=== PATIENT | male | born 1995 | race Caucasian/White ===

== ENCOUNTER → 2017-12-13 13:44 | Outpatient (CLI) | payer OTHER, SELFPAY ==
--- NOTE | 2017-12-13 13:46 | DI.RAD.S_ITS ---
PROCEDURE: XR ANKLE LT MIN 3V INDICATIONS: ankle injury TECHNIQUE: 3 views of the ankle were acquired. COMPARISON: None. FINDINGS: Bones: No fractures or dislocations. Ankle mortise is normally aligned. No suspicious bony lesions. Soft tissues: No tibiotalar joint effusion. Achilles tendon appears normal. IMPRESSION: Mild soft tissue swelling over lateral malleolus. No fracture or traumatic subluxation is found. Dictated by: Waqas Hughes M.D. on 12/13/2017 at 14:25 Approved by: Waqas Hughes M.D. on 12/13/2017 at 14:26
== END ==
PROVIDERS: Family Provider Family Medicine; PCP Family Medicine; Visit Provider Registered Nurse
DX: S99.912A Unspecified injury of left ankle, initial encounter (principal); M79.89 Other specified soft tissue disorders
CPT/HCPCS: 73610

== ENCOUNTER → 2018-08-24 15:47 | Outpatient (CLI) | payer OTHER, SELFPAY ==
[2018-08-24 16:30] LABS: Add Manual Diff / Slide Review NO; Basophils Absolute Auto 100 /uL (0-100); Basophils Percent Auto 1.1 % (0-2); Eosinophils Absolute Auto 200 /uL (0-450); Eosinophils Percent Auto 3.6 % (2-4); Hematocrit 41.9 % (41-53); Hemoglobin 14.3 g/dL (13.5-17.5); Lymphocytes Absolute Auto 1700 /uL (1100-4500); Lymphocytes Percent Auto 33.5 % (25-40); Mean Corpuscular HGB Conc 34.2 % (30-36); Mean Corpuscular Hemoglobin 28.3 PG (26-34); Mean Corpuscular Volume 82.9 fL (80-100); Monocytes Absolute Auto 400 /uL (0-900); Monocytes Percent Auto 7.7 % (3-14); Neutrophils Absolute Auto 2800 /uL (1500-7000); Neutrophils Percent Auto 54.1 % (50-75); Platelet Count 207 X10^3/uL (150-400); Red Blood Cell Count 5.05 X10^6/uL (4.5-5.9); Red Cell Distribution Width 13.1 % (11.6-14.8); White Blood Cell Count 5.2 X10^3/uL (4.5-11.0)
== END ==
PROVIDERS: PCP Family Medicine; Visit Provider Family Medicine
DX: Z01.812 Encounter for preprocedural laboratory examination (principal)
CPT/HCPCS: 36415; 85025; 93005; 93010

== ENCOUNTER → 2019-07-10 16:14 | Outpatient (CLI) | payer OTHER, SELFPAY ==
[2019-07-10 17:09] LABS: Add Manual Diff / Slide Review NO; Basophils Absolute Auto 100 /uL (0-100); Basophils Percent Auto 1.2 % (0-2); Eosinophils Absolute Auto 200 /uL (0-450); Eosinophils Percent Auto 3.5 % (2-4); Hematocrit 42.7 % (41-53); Hemoglobin 14.3 g/dL (13.5-17.5); Lymphocytes Absolute Auto 1700 /uL (1100-4500); Lymphocytes Percent Auto 27.6 % (25-40); Mean Corpuscular HGB Conc 33.4 % (30-36); Mean Corpuscular Hemoglobin 28.6 PG (26-34); Mean Corpuscular Volume 85.4 fL (80-100); Monocytes Absolute Auto 500 /uL (0-900); Monocytes Percent Auto 7.7 % (3-14); Neutrophils Absolute Auto 3700 /uL (1500-7000); Platelet Count 224 X10^3/uL (150-400); Red Cell Distribution Width 13.2 % (11.6-14.8); White Blood Cell Count 6.2 X10^3/uL (4.5-11.0)
[2019-07-10 17:40] LABS: Alanine Aminotransferase 15 IU/L (<50); Albumin 5.2 g/dL (3.5-5.0); Albumin Globulin Ratio 1.4 (1.0-2.8); Alkaline Phosphatase 63 U/L (38-126); Aspartate Aminotransferase 24 IU/L (17-59); BUN Creatinine Ratio 19.2 (6-22); Bilirubin Total 0.4 mg/dL (0.2-1.3); Blood Urea Nitrogen 15 mg/dL (9-20); Calcium 10.4 mg/dL (8.4-10.2); Carbon Dioxide 29 mmol/L (22-32); Chloride 102 mmol/L (98-107); Estimated Glomerular Filt Rate > 60.0 mL/min (>60); Globulin 3.6 g/dL (1.7-4.1); Glucose 100 mg/dL (70-100); HEMOLYSIS < 15 (0-50); Potassium 4.5 mmol/L (3.4-5.1); Sodium 141 mmol/L (137-145); Total Protein 8.8 g/dL (6.3-8.2)
[2019-07-11 07:17] LABS: Valproic Acid (Depakene) Total 38 ug/mL (50-100)
== END ==
PROVIDERS: PCP Family Medicine; Referring Provider Nurse Practitioner Psychiatric/Mental Health; Visit Provider Nurse Practitioner Psychiatric/Mental Health
DX: F31.81 Bipolar II disorder (principal)
CPT/HCPCS: 36415; 80053; 80164; 85025

== ENCOUNTER → 2019-08-07 16:50 | Outpatient (CLI) | payer OTHER, SELFPAY ==
[2019-08-07 18:05] LABS: Add Manual Diff / Slide Review NO; Basophils Absolute Auto 100 /uL (0-100); Basophils Percent Auto 1.4 % (0-2); Eosinophils Absolute Auto 200 /uL (0-450); Eosinophils Percent Auto 4.1 % (2-4); Hematocrit 40.4 % (41-53); Hemoglobin 13.7 g/dL (13.5-17.5); Lymphocytes Absolute Auto 1500 /uL (1100-4500); Lymphocytes Percent Auto 27.1 % (25-40); Mean Corpuscular HGB Conc 33.9 % (30-36); Mean Corpuscular Volume 85.6 fL (80-100); Monocytes Absolute Auto 500 /uL (0-900); Monocytes Percent Auto 9.1 % (3-14); Neutrophils Absolute Auto 3100 /uL (1500-7000); Neutrophils Percent Auto 58.3 % (50-75); Platelet Count 200 X10^3/uL (150-400); Red Blood Cell Count 4.72 X10^6/uL (4.5-5.9); Red Cell Distribution Width 13.5 % (11.6-14.8); White Blood Cell Count 5.4 X10^3/uL (4.5-11.0)
[2019-08-07 18:16] LABS: Alanine Aminotransferase 14 IU/L (<50); Albumin Globulin Ratio 1.6 (1.0-2.8); Alkaline Phosphatase 54 U/L (38-126); Aspartate Aminotransferase 23 IU/L (17-59); BUN Creatinine Ratio 16.4 (6-22); Bilirubin Total 0.3 mg/dL (0.2-1.3); Blood Urea Nitrogen 12 mg/dL (9-20); Calcium 10.1 mg/dL (8.4-10.2); Carbon Dioxide 25 mmol/L (22-32); Chloride 105 mmol/L (98-107); Estimated Glomerular Filt Rate > 60.0 mL/min (>60); Globulin 3.2 g/dL (1.7-4.1); Glucose 116 mg/dL (70-100); HEMOLYSIS < 15 (0-50); Potassium 4.7 mmol/L (3.4-5.1); Sodium 141 mmol/L (137-145); Total Protein 8.2 g/dL (6.3-8.2)
[2019-08-08 04:27] LABS: Valproic Acid (Depakene) Total 51 ug/mL (50-100)
== END ==
PROVIDERS: PCP Family Medicine; Referring Provider Nurse Practitioner Psychiatric/Mental Health; Visit Provider Nurse Practitioner Psychiatric/Mental Health
DX: F31.81 Bipolar II disorder (principal)
CPT/HCPCS: 36415; 80053; 80164; 85025

== ENCOUNTER → 2019-10-23 13:03 | Outpatient (CLI) | payer OTHER, SELFPAY ==
[2019-10-23 14:20] LABS: Add Manual Diff / Slide Review NO; Basophils Absolute Auto 100 /uL (0-100); Basophils Percent Auto 1.2 % (0-2); Eosinophils Absolute Auto 300 /uL (0-450); Eosinophils Percent Auto 5.8 % (2-4); Hematocrit 39.5 % (41-53); Hemoglobin 13.1 g/dL (13.5-17.5); Lymphocytes Absolute Auto 1300 /uL (1100-4500); Lymphocytes Percent Auto 29.4 % (25-40); Mean Corpuscular HGB Conc 33.1 % (30-36); Mean Corpuscular Hemoglobin 28.3 PG (26-34); Mean Corpuscular Volume 85.2 fL (80-100); Monocytes Absolute Auto 300 /uL (0-900); Monocytes Percent Auto 7.7 % (3-14); Neutrophils Absolute Auto 2400 /uL (1500-7000); Neutrophils Percent Auto 55.9 % (50-75); Platelet Count 182 X10^3/uL (150-400); Red Blood Cell Count 4.63 X10^6/uL (4.5-5.9); Red Cell Distribution Width 13.3 % (11.6-14.8); White Blood Cell Count 4.4 X10^3/uL (4.5-11.0)
[2019-10-23 16:03] LABS: Alanine Aminotransferase 14 IU/L (<50); Albumin 4.8 g/dL (3.5-5.0); Albumin Globulin Ratio 1.7 (1.0-2.8); Alkaline Phosphatase 59 U/L (38-126); Aspartate Aminotransferase 24 IU/L (17-59); Bilirubin Total 0.5 mg/dL (0.2-1.3); Blood Urea Nitrogen 13 mg/dL (9-20); Calcium 9.9 mg/dL (8.4-10.2); Carbon Dioxide 23 mmol/L (22-32); Chloride 106 mmol/L (98-107); Globulin 2.8 g/dL (1.7-4.1); Glucose 138 mg/dL (70-100); HEMOLYSIS < 15 (0-50); Potassium 4.2 mmol/L (3.4-5.1); Sodium 140 mmol/L (137-145); Total Protein 7.6 g/dL (6.3-8.2)
[2019-10-23 16:41] LABS: BUN Creatinine Ratio 17.8 (6-22); Estimated Glomerular Filt Rate > 60.0 mL/min (>60)
[2019-10-24 05:10] LABS: Valproic Acid (Depakene) Total 62 ug/mL (50-100)
[2019-10-24 09:04] LABS: Lipase 172 U/L (23-300)
[2019-11-01 09:35] LABS: Urea Breath Test >18YRS Negative
== END ==
PROVIDERS: PCP Family Medicine; Referring Provider Family Medicine; Visit Provider Family Medicine
DX: R11.10 Vomiting, unspecified (principal); Z86.69 Personal history of other diseases of the nervous system and sense organs
CPT/HCPCS: 36415; 80053; 80164; 83013; 83690; 85025

== ENCOUNTER → 2019-10-29 07:44 | Outpatient (CLI) | payer OTHER, SELFPAY ==
--- NOTE | 2019-10-29 07:45 | DI.MRI.S_ITS ---
PROCEDURE: MR HEAD/BRAIN WO/W CON INDICATIONS: headachs with vomiting TECHNIQUE: Noncontrast axial T1 spin echo, axial T2 fast spin echo, sagittal and axial FLAIR, coronal T2 fast spin echo, axial gradient echo, axial diffusion and ADC through the brain. After the administration of contrast, axial and coronal 3D VIBE or T1 spin echo with fat saturation through the brain. COMPARISON: None. FINDINGS: Image quality: Excellent. CSF Spaces: Basal cisterns are patent. Small retrocerebellar arachnoid cyst measuring approximate 2.4 cm with no significant mass effect on the adjacent cerebral parenchyma is or posterior fossa ventricular system. The ventricles are normal in configuration and caliber. Brain: No findings of mass effect or midline shift. No intracranial bleeds or masses. No abnormal intracranial enhancement. The brainstem appears normal. Diffusion-weighted images demonstrate no acute ischemic insults. No chronic ischemic insults. Normal intravascular flow voids are present. Skull and face: Calvarial marrow is normal in signal. Orbits appear normal. Sinuses: Left maxillary sinus inflammatory changes with mucosal thickening measuring up to 3 mm. Remainder the paranasal sinuses and mastoid air cells are clear. IMPRESSION: Small retrocerebellar cyst measuring up to 2.4 cm with no evidence of significant mass effect. Otherwise normal MRI of the brain. Dictated by: Jaxon Valencia M.D. on 10/29/2019 at 9:18 Approved by: Jaxon Valencia M.D. on 10/29/2019 at 9:22
== END ==
PROVIDERS: PCP Family Medicine; Referring Provider Family Medicine; Visit Provider Family Medicine
DX: R51 Headache (principal); R11.10 Vomiting, unspecified; G93.0 Cerebral cysts
CPT/HCPCS: 70553; A9579

== ENCOUNTER → 2020-01-17 14:24 | Outpatient (CLI) | payer OTHER, SELFPAY ==
[2020-01-17 15:44] LABS: Alanine Aminotransferase 11 IU/L (<50); Albumin 4.9 g/dL (3.5-5.0); Albumin Globulin Ratio 1.8 (1.0-2.8); Alkaline Phosphatase 56 U/L (38-126); Aspartate Aminotransferase 21 IU/L (17-59); BUN Creatinine Ratio 25.8 (6-22); Bilirubin Total 0.4 mg/dL (0.2-1.3); Blood Urea Nitrogen 17 mg/dL (9-20); Calcium 9.8 mg/dL (8.4-10.2); Carbon Dioxide 26 mmol/L (22-32); Chloride 104 mmol/L (98-107); Estimated Glomerular Filt Rate > 60.0 mL/min (>60); Globulin 2.7 g/dL (1.7-4.1); Glucose 118 mg/dL (70-100); HEMOLYSIS < 15 (0-50); Sodium 141 mmol/L (137-145); Total Protein 7.6 g/dL (6.3-8.2)
[2020-01-20 18:34] LABS: Tissue Transglutaminase IgA <2 U/mL (0-3); Tissue Transglutaminase IgG <2 U/mL (0-5)
== END ==
PROVIDERS: PCP Family Medicine; Referring Provider Family Medicine; Visit Provider Family Medicine
DX: R11.10 Vomiting, unspecified (principal); R63.4 Abnormal weight loss
CPT/HCPCS: 36415; 80053; 83516

== ENCOUNTER → 2020-06-22 08:14 | Outpatient (CLI) | payer OTHER, SELFPAY ==
--- NOTE | 2020-06-22 08:16 | DI.CT.S_ITS ---
PROCEDURE: CT SINUS SCREEN WO CON INDICATIONS: Left maxillary sinus edema TECHNIQUE: Noncontrast 3.0 mm axial images acquired from the frontal sinuses to the mid-sella, with coronal and sagittal reformats. For radiation dose reduction, the following was used: automated exposure control, adjustment of mA and/or kV according to patient size. COMPARISON: None. FINDINGS: These images demonstrate bilateral anterior maxillary anterior wall plate and screw hardware construct. There is no obvious abnormal lucency surrounding the hardware to indicate infection or loosening. There is thickening and sclerosis of the anterior maxillary sinus chau bilaterally, as well as the lateral maxillary sinus wall on the left, nonspecific. Mild mucosal thickening in the left maxillary sinus measuring up to 6 6 millimeters in thickness anteriorly. Trace mucosal thickening on the right anteriorly and inferiorly. The left maxillary sinus outflow tract is obstructed (series 4, images 25-28). The right maxillary sinus outflow tract is widely patent. The remaining paranasal sinuses and nasal cavities are clear. Moderate S shaped nasal septal deviation. No nitin bullosa or Damon cell. IMPRESSION: Postsurgical changes of both maxillary sinuses anteriorly related to anterior wall reconstruction with malleable plate and screw hardware construct. No acute complicating hardware feature demonstrated. Left maxillary sinus mucosal thickening and outflow tract obstruction. Dictated by: Jaxon Valencia M.D. on 06/22/2020 at 8:45 Approved by: Jaxon Valencia M.D. on 06/22/2020 at 8:49
== END ==
PROVIDERS: PCP Family Medicine; Referring Provider Physician Assistant; Visit Provider Physician Assistant
DX: R22.0 Localized swelling, mass and lump, head (principal); J34.89 Other specified disorders of nose and nasal sinuses; J34.2 Deviated nasal septum
CPT/HCPCS: 70486

== ENCOUNTER → 2020-11-26 13:02 | Outpatient (CLI) | payer OTHER, SELFPAY ==
[2020-11-26 14:01] LABS: Alanine Aminotransferase 12 IU/L (<50); Albumin 4.9 g/dL (3.5-5.0); Albumin Globulin Ratio 1.6 (1.0-2.8); Alkaline Phosphatase 59 U/L (38-126); Aspartate Aminotransferase 24 IU/L (17-59); Bilirubin Total 0.5 mg/dL (0.2-1.3); Bilirubin Unconjugated 0.4 mg/dL (0.0-1.1); Globulin 3.1 g/dL (1.7-4.1); HEMOLYSIS < 15 (0-50)
[2020-11-27 09:43] LABS: Valproic Acid (Depakene) Total 48 ug/mL (50-100)
== END ==
PROVIDERS: PCP Family Medicine; Referring Provider Psychiatry & Neurology Psychiatry; Visit Provider Psychiatry & Neurology Psychiatry
DX: F31.9 Bipolar disorder, unspecified (principal)
CPT/HCPCS: 36415; 80076; 80164

== ENCOUNTER → 2021-01-14 16:38 | Outpatient (CLI) | payer OTHER, SELFPAY ==
[2021-01-14 17:31] LABS: Lithium < 0.2 mmol/L (0.6-1.2)
== END ==
PROVIDERS: PCP Family Medicine; Referring Provider Psychiatry & Neurology Psychiatry; Visit Provider Psychiatry & Neurology Psychiatry
DX: F31.10 Bipolar disorder, current episode manic without psychotic features, unspecified (principal)
CPT/HCPCS: 36415; 80178

== ENCOUNTER → 2021-02-22 11:41 | Outpatient (CLI) | payer OTHER, SELFPAY ==
[2021-02-22 13:09] LABS: Lithium 0.4 mmol/L (0.6-1.2)
== END ==
PROVIDERS: PCP Family Medicine; Referring Provider Psychiatry & Neurology Psychiatry; Visit Provider Psychiatry & Neurology Psychiatry
DX: F31.10 Bipolar disorder, current episode manic without psychotic features, unspecified (principal)
CPT/HCPCS: 36415; 80178

== ENCOUNTER → 2021-03-05 11:27 | Outpatient (CLI) | payer OTHER, SELFPAY ==
[2021-03-05 12:04] LABS: Lithium 0.6 mmol/L (0.6-1.2)
== END ==
PROVIDERS: PCP Family Medicine; Referring Provider Psychiatry & Neurology Psychiatry; Visit Provider Psychiatry & Neurology Psychiatry
DX: F31.10 Bipolar disorder, current episode manic without psychotic features, unspecified (principal)
CPT/HCPCS: 36415; 80178

== ENCOUNTER → 2021-06-17 09:31 | Outpatient (CLI) | payer OTHER, SELFPAY ==
[2021-06-17 10:37] LABS: Lithium 0.7 mmol/L (0.6-1.2)
[2021-06-18 03:13] LABS: Valproic Acid (Depakene) Total 68 ug/mL (50-100)
== END ==
PROVIDERS: PCP Family Medicine; Referring Provider Psychiatry & Neurology Psychiatry; Visit Provider Psychiatry & Neurology Psychiatry
DX: F31.10 Bipolar disorder, current episode manic without psychotic features, unspecified (principal); Z79.899 Other long term (current) drug therapy
CPT/HCPCS: 36415; 80164; 80178

== ENCOUNTER → 2021-09-18 11:01 | Outpatient (CLI) | payer OTHER, SELFPAY ==
[2021-09-19 06:18] LABS: Valproic Acid (Depakene) Total 57 ug/mL (50-100)
[2021-09-19 15:30] LABS: Lithium 0.6 mmol/L (0.6-1.2)
== END ==
PROVIDERS: PCP Family Medicine; Referring Provider Psychiatry & Neurology Psychiatry; Visit Provider Psychiatry & Neurology Psychiatry
DX: F31.10 Bipolar disorder, current episode manic without psychotic features, unspecified (principal)
CPT/HCPCS: 36415; 80164; 80178

== ENCOUNTER → 2024-04-01 10:53 | Outpatient (CLI) | payer BC, SELFPAY ==
[2024-04-01 12:07] LABS: Add Manual Diff / Slide Review NO; Basophils Absolute Auto 100 /uL (0-100); Basophils Percent Auto 1.1 % (0-2); Eosinophils Absolute Auto 400 /uL (0-450); Eosinophils Percent Auto 6.1 % (2-4); Hematocrit 40.7 % (41-53); Hemoglobin 13.4 g/dL (13.5-17.5); Lymphocytes Absolute Auto 1600 /uL (1100-4500); Lymphocytes Percent Auto 23.8 % (25-40); Mean Corpuscular HGB Conc 32.9 % (30-36); Mean Corpuscular Hemoglobin 27.7 PG (26-34); Mean Corpuscular Volume 84.3 fL (80-100); Monocytes Absolute Auto 500 /uL (0-900); Monocytes Percent Auto 7.1 % (3-14); Neutrophils Absolute Auto 4000 /uL (1500-7000); Neutrophils Percent Auto 61.9 % (50-75); Platelet Count 206 X10^3/uL (150-400); Red Blood Cell Count 4.83 X10^6/uL (4.5-5.9); Red Cell Distribution Width 13.6 % (11.6-14.8); White Blood Cell Count 6.5 X10^3/uL (4.5-11.0)
[2024-04-01 12:18] LABS: Alanine Aminotransferase 18 IU/L (<50); Albumin 4.7 g/dL (3.5-5.0); Albumin Globulin Ratio 1.6 (1.0-2.8); Alkaline Phosphatase 56 U/L (38-126); Aspartate Aminotransferase 27 IU/L (17-59); BUN Creatinine Ratio 12.9 (6-22); Bilirubin Total 0.3 mg/dL (0.2-1.3); Blood Urea Nitrogen 11 mg/dL (9-20); Calcium 9.7 mg/dL (8.4-10.2); Carbon Dioxide 25 mmol/L (22-32); Chloride 107 mmol/L (98-107); Cholesterol 192 mg/dL (140-199); Estimated Glomerular Filt Rate > 60 mL/min (>60); Globulin 2.9 g/dL (1.7-4.1); Glucose 101 mg/dL (70-100); HDL Cholesterol 38 mg/dL (40-60); HEMOLYSIS < 15 (0-50); LDL Cholesterol Calculated 119 mg/dL (<100); Potassium 4.1 mmol/L (3.4-5.1); Sodium 141 mmol/L (137-145); Total Protein 7.6 g/dL (6.3-8.2); Triglycerides 177 mg/dL (35-150)
[2024-04-01 12:21] LABS: Lithium 0.7 mmol/L (0.6-1.2)
[2024-04-01 12:53] LABS: TSH w/ Reflex to FT4 1.64 uIU/mL (0.47-4.68)
== END ==
PROVIDERS: PCP Family Medicine; Referring Provider Family Medicine; Visit Provider Family Medicine
DX: F31.10 Bipolar disorder, current episode manic without psychotic features, unspecified (principal); G43.909 Migraine, unspecified, not intractable, without status migrainosus; F60.3 Borderline personality disorder
CPT/HCPCS: 36415; 80053; 80061; 80178; 83036; 84443; 85025

== ENCOUNTER 2024-07-06 09:21 | Emergency (ER) | payer BC, SELFPAY ==
[2024-07-06] VITALS (8 sets, daily range): BP systolic 109–118; BP diastolic 61–69; PULSE 56–89; RESP 16–18; TEMP 36.8; O2SAT 97–99; BMI 21.7
[2024-07-06 10:10] LABS: Add Manual Diff / Slide Review NO; Basophils Absolute Auto 100 /uL (0-100); Basophils Percent Auto 0.6 % (0-2); Eosinophils Absolute Auto 400 /uL (0-450); Eosinophils Percent Auto 3.4 % (2-4); Hemoglobin 13.7 g/dL (13.5-17.5); Lymphocytes Absolute Auto 1700 /uL (1100-4500); Lymphocytes Percent Auto 15.5 % (25-40); Mean Corpuscular HGB Conc 33.4 % (30-36); Mean Corpuscular Hemoglobin 27.9 PG (26-34); Mean Corpuscular Volume 83.4 fL (80-100); Monocytes Absolute Auto 800 /uL (0-900); Monocytes Percent Auto 6.9 % (3-14); Neutrophils Absolute Auto 8100 /uL (1500-7000); Neutrophils Percent Auto 73.6 % (50-75); Platelet Count 247 X10^3/uL (150-400); Red Blood Cell Count 4.91 X10^6/uL (4.5-5.9); Red Cell Distribution Width 13.9 % (11.6-14.8)
--- NOTE | 2024-07-06 10:17 | ED.ABDPAIN ---
HPI - Abdominal Pain General Chief Complaint: Abdominal Pain Stated Complaint: Per patient, Possible Appendicitis Time Seen by Provider: 07/06/24 09:58 Source: patient Mode of arrival: Family Vehicle History of Present Illness HPI narrative: 29-year-old gentleman history of kidney stone surgery, jaw surgery, presents with right lower quadrant pain for 2 days despite using laxatives Pepto-Bismol thinking this could be constipation or acid reflux but continues to have pain in the right lower quadrant that he localizes to but no fever chills nausea vomiting diarrhea or constipation. Patient denies hematuria penile discharge testicular pain. Other than what is stated 14 point review of system is negative Related Data Home Medications Medication Instructions Recorded Confirmed lurasidone 20 mg tablet 20 mg PO DAILY 11/24/22 04/01/24 olanzapine 2.5 mg tablet 2.5 mg PO DAILY PRN agitation 11/24/22 04/01/24 lithium carbonate 300 mg capsule 900 mg PO DAILY 04/01/24 04/01/24 Previous Rx's Medication Instructions Recorded fremanezumab-vfrm 225 mg/1.5 mL 225 mg (1.5 mL) SUBCUT QMONTH #4.5 04/01/24 subcutaneous auto-injector (Ajovy) mL amoxicillin 875 mg-potassium 1 tab PO BID #14 tabs 07/06/24 clavulanate 125 mg tablet Allergies Allergy/AdvReac Type Severity Reaction Status Date / Time No Known Drug Allergies Allergy Verified 07/06/24 09:40 Review of Systems Review of Systems ROS Unobtainable: All systems reviewed & are unremarkable except as noted in HPI and below Patient History Medical History (Updated 07/06/24 @ 14:39 by Joseph Maldonado MD) Medication management Left testicular torsion Seizures Ureteropelvic junction (UPJ) obstruction, left Major depressive disorder with single episode, in partial remission (09/29/15) Depression Dysthymia Social anxiety disorder Surgical History Status post urinary system surgery Status post orchiopexy Social History marital status: unmarried,single Smoking Status: Former smoker alcohol intake: never substance use type: does not use Smoking Status: Former smoker tobacco type: cigarettes Exam Narrative Exam Narrative: GENERAL: [29] year old patient appears stated age. Well-developed patient, in mild distress. HEAD: Atraumatic. Normocephalic. EYES: Pupils equal round and reactive. Extraocular motions intact. No scleral icterus. No injection or drainage. ENT: Nose without bleeding, purulent drainage. Throat without erythema, tonsillar hypertrophy or exudate. Airway patent. NECK: Trachea midline. Non tender CARDIOVASCULAR: Regular rate and rhythm without murmurs, gallops, or rubs. RESPIRATORY: Clear to auscultation. Breath sounds equal bilaterally. No wheezes, rales, or rhonchi. GASTROINTESTINAL: Abdomen soft, RLQ TTp no r/r/g, nondistended. EXTREMITIES: No edema or joint tenderness. BACK: Nontender without deformity or crepitance. No flank tenderness. NEURO: AOx3. SKIN: No rash or erythema of visible areas Initial Vital Signs Initial Vital Signs: Vital Signs Temperature 98.3 F 07/06/24 09:36 Pulse Rate 89 07/06/24 09:36 Respiratory Rate 18 07/06/24 09:36 Blood Pressure 110/66 07/06/24 09:36 Pulse Oximetry 98 07/06/24 09:36 Oxygen Delivery Method Room Air 07/06/24 09:36 Course Orders Ordered: ED Orders 07/06/24 09:56 Complete Blood Count AUTO DIFF Stat Comprehensive Metabolic Panel Stat Lipase Stat 07/06/24 10:02 Ammonia (NH3) Stat 07/06/24 10:18 CT abdomen pelvis w con Stat Ondansetron HCl (Ondansetron 4 Mg/2 Ml Inj) 4 mg IV NOW PRN PRN Reason: Nausea And Vomiting Ondansetron HCl (Ondansetron 4 Mg Odt) 4 mg PO NOW PRN PRN Reason: Nausea And Vomiting Discontinued Medications Sodium Chloride (Normal Saline 0.9%) 1,000 mls @ 1,000 mls/hr IV BOLUS ONE Stop: 07/06/24 11:16 Last Infusion: 07/06/24 11:30 Dose: Infused Documented By: Admin: 07/06/24 10:28 Dose: 1,000 mls/hr Documented By: LOCO Vital Signs Vital signs: Vital Signs - 8 hr 07/06/24 09:36 07/06/24 12:22 07/06/24 12:22 Temperature 98.3 F Pulse Rate 89 65 Respiratory Rate 18 16 Blood Pressure 110/66 116/69 Pulse Oximetry 98 98 Oxygen Delivery Method Room Air Room Air 07/06/24 12:30 07/06/24 12:30 07/06/24 13:00 Temperature Pulse Rate 56 L 64 Respiratory Rate Blood Pressure 111/69 Pulse Oximetry 97 98 Oxygen Delivery Method 07/06/24 13:00 07/06/24 13:30 07/06/24 13:30 Temperature Pulse Rate 66 Respiratory Rate 16 Blood Pressure 110/67 109/64 Pulse Oximetry 97 Oxygen Delivery Method Room Air MDM - Abdominal Pain Lab Data 07/06/24 09:56 07/06/24 09:56 Labs: Lab Results 07/06/24 07/06/24 Range/Units 09:56 10:02 WBC 11.0 (4.5-11.0) X10^3/uL RBC 4.91 (4.5-5.9) X10^6/uL Hgb 13.7 (13.5-17.5) g/dL Hct 41.0 (41-53) % MCV 83.4 (80-100) fL MCH 27.9 (26-34) PG MCHC 33.4 (30-36) % RDW 13.9 (11.6-14.8) % Plt Count 247 (150-400) X10^3/uL Neut % (Auto) 73.6 (50-75) % Lymph % (Auto) 15.5 L (25-40) % [place] % (Auto) 6.9 (3-14) % Eos % (Auto) 3.4 (2-4) % Baso % (Auto) 0.6 (0-2) % Neut # (Auto) 8100 H (0267-5631) /uL Lymph # (Auto) 1700 (9100-1674) /uL [place] # (Auto) 800 (0-900) /uL Eos # (Auto) 400 (0-450) /uL Baso # (Auto) 100 (0-100) /uL Sodium 139 (137-145) mmol/L Potassium 4.1 (3.4-5.1) mmol/L Chloride 104 (98-107) mmol/L Carbon Dioxide 23 (22-32) mmol/L BUN 13 (9-20) mg/dL Creatinine 0.81 (0.66-1.25) mg/dL Estimated GFR > 60 (>60) mL/min BUN/Creatinine Ratio 16.0 (6-22) Glucose 108 H (70-100) mg/dL Calcium 10.2 (8.4-10.2) mg/dL Total Bilirubin 1.1 (0.2-1.3) mg/dL AST 23 (17-59) IU/L ALT 17 (<50) IU/L Alkaline Phosphatase 60 (38-126) U/L Ammonia 10 (9-30) umol/L Total Protein 8.6 H (6.3-8.2) g/dL Albumin 5.1 H (3.5-5.0) g/dL Globulin 3.5 (1.7-4.1) g/dL Albumin/Globulin Ratio 1.5 (1.0-2.8) Lipase 161 (23-300) U/L Point of care testing: Urine Dip Bedside Urine Glucose Negative Bedside Urine Bilirubin - Negative Bedside Urine Ketone - Negative Urine Specific [place] 1.005 Bedside Urine Occult Blood - Negative Bedside Urine pH 7.0 Bedside Urine Protein - Negative Bedside Urine Urobilinogen - Negative Bedside Urine Nitrite - Negative Bedside Urine Leukocytes - Negative Esterase MDM Narrative Medical decision making narrative: [address] [address] [address] Scan Report Signed Patient: Brenden Correia MR#: [id number] : 1995 Acct:[id number] Age/Sex: 29 / M Date of Service: 07/06/24 Loc: ED Accession Number: [id number] Procedure: CT abdomen pelvis w con Ordering Provider: Gigi Mcghee D.O. PROCEDURE: CT ABDOMEN PELVIS W CON INDICATIONS: abd pain TECHNIQUE: After the administration of intravenous contrast, axial sections acquired from the lung bases to the pubic symphysis. Coronal and sagittal reformats were performed. For radiation dose reduction, the following was used: automated exposure control, adjustment of mA and/or kV according to patient size. COMPARISON: None. FINDINGS: Lower Chest: No significant findings. ABDOMEN: Liver: No solid mass. Gallbladder: No radiopaque gallstones or wall thickening. Biliary ducts: No biliary dilation. Pancreas: No ductal dilation. Spleen: Size is within normal limits. Adrenal Glands: No adrenal nodules. Kidneys and Ureters: No hydronephrosis. No solid mass. No complex renal cystic lesion which requires follow up. Stomach and Bowel: The appendix is dilated and inflamed measuring up to 1 cm in diameter. No evidence of abscess or appendicolith. Adjacent small bowel shows secondary wall enhancement. No obstruction. Peritoneum: No abnormal intraperitoneal fluid. No free air. Ventral Wall: No significant ventral hernia. Abdominal Nodes: No retroperitoneal or mesenteric adenopathy by size criteria. Vessels: Aorta and inferior vena cava are normal in size. PELVIS: Pelvic Organs: Unremarkable. Bladder: No bladder wall thickening, accounting for underdistention. Pelvic Nodes: No enlarged lymph nodes. Miscellaneous: No inguinal hernias are seen. Bones: No aggressive osseous abnormality. IMPRESSION: Acute appendicitis. No evidence of obstruction, abscess or appendicolith. All lab work and CT scan reviewed patient was given Zosyn here. All vital signs nursing triage note medication list previous visits have also been reviewed. Dr. Ingram has come by and seen and examined the patient patient will be going home on Augmentin and to follow up with him as outpatient. Differential diagnosis include appendicitis, cholecystitis, pancreatitis, kidney stone, kidney infection. Discharge Plan Departure Patient Disposition: Home Clinical Impression: Acute appendicitis Instructions: DI for Appendicitis -- Adult Activity Restrictions/Additional Instructions: Return with new or worsening symptoms. Take your medicines as directed. Follow up with Dr. Maldonado outpatient. Prescriptions: New amoxicillin-pot clavulanate 875-125 mg tablet 1 tab PO BID Qty: 14 0RF No Action lurasidone 20 mg tablet 20 mg PO DAILY Rx Instructions: must administer with food (at least 350 calories) olanzapine 2.5 mg tablet 2.5 mg PO DAILY PRN (Reason: agitation) Rx Instructions: take 1 at bedtime for 2-5 days as needed lithium carbonate 300 mg capsule 900 mg PO DAILY Ajovy Autoinjector 225 mg/1.5 mL auto-injector 225 mg SUBCUT QMONTH Qty: 4.5 12RF Referrals: Jaxon Kirkland MD [Primary Care Provider] - Stand Alone Forms: Patient Portal/API/Survey
[2024-07-06 10:27] LABS: Alanine Aminotransferase 17 IU/L (<50); Albumin 5.1 g/dL (3.5-5.0); Albumin Globulin Ratio 1.5 (1.0-2.8); Alkaline Phosphatase 60 U/L (38-126); Aspartate Aminotransferase 23 IU/L (17-59); Bilirubin Total 1.1 mg/dL (0.2-1.3); Blood Urea Nitrogen 13 mg/dL (9-20); Calcium 10.2 mg/dL (8.4-10.2); Carbon Dioxide 23 mmol/L (22-32); Chloride 104 mmol/L (98-107); Estimated Glomerular Filt Rate > 60 mL/min (>60); Globulin 3.5 g/dL (1.7-4.1); Glucose 108 mg/dL (70-100); HEMOLYSIS < 15 (0-50); Lipase 161 U/L (23-300); Potassium 4.1 mmol/L (3.4-5.1); Sodium 139 mmol/L (137-145); Total Protein 8.6 g/dL (6.3-8.2)
[2024-07-06] MEDS: SODIUM CHLORIDE 0.9% 1,000 ML 1000 ML IV (10:28)
[2024-07-06 10:52] LABS: Ammonia (NH3) 10 umol/L (9-30)
--- NOTE | 2024-07-06 14:37 | PM.HP.IH.1 ---
History of Present Illness History of Present Illness Date Patient Seen: 07/06/24 Time Patient Seen: 14:37 Chief complaint: Per patient, Possible Appendicitis Narrative: 29-year-old gentleman history of kidney stone surgery, jaw surgery, presents with right lower quadrant pain for 2 days despite using laxatives Pepto-Bismol thinking this could be constipation or acid reflux but continues to have pain in the right lower quadrant that he localizes to but no fever chills nausea vomiting diarrhea or constipation. Patient denies hematuria penile discharge testicular pain. Other than what is stated 14 point review of system is negative. 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 He has experienced some feeling warm off-and-on for months, but no specific abdominal pain [facility] Medical History Medication management Left testicular torsion Seizures Ureteropelvic junction (UPJ) obstruction, left Major depressive disorder with single episode, in partial remission (09/29/15) Depression Dysthymia Social anxiety disorder Surgical History Status post urinary system surgery Status post orchiopexy Social History marital status: unmarried,single Smoking Status: Former smoker alcohol intake: never substance use type: does not use Meds Home Medications and Allergies Home Medications Medication Instructions Recorded Confirmed Type lurasidone 20 mg tablet 20 mg PO DAILY 11/24/22 04/01/24 History olanzapine 2.5 mg tablet 2.5 mg PO DAILY PRN agitation 11/24/22 04/01/24 History fremanezumab-vfrm 225 mg/1.5 mL 225 mg (1.5 mL) SUBCUT QMONTH #4.5 04/01/24 04/01/24 Rx subcutaneous auto-injector (Ajovy) mL lithium carbonate 300 mg capsule 900 mg PO DAILY 04/01/24 04/01/24 History Allergies Allergy/AdvReac Type Severity Reaction Status Date / Time No Known Drug Allergies Allergy Verified 07/06/24 09:40 Review of Systems Review of Systems ROS: Yes All systems reviewed with the patient and are negative except as otherwise documented Exam Vital Signs (past 8 hours): - 07/06/24 09:36 07/06/24 12:22 07/06/24 12:22 Temperature 98.3 F Pulse Rate 89 65 Respiratory Rate 18 16 Blood Pressure 110/66 116/69 Pulse Oximetry 98 98 Oxygen Delivery Method Room Air Room Air 07/06/24 12:30 07/06/24 12:30 07/06/24 13:00 Temperature Pulse Rate 56 L 64 Respiratory Rate Blood Pressure 111/69 Pulse Oximetry 97 98 Oxygen Delivery Method 07/06/24 13:00 07/06/24 13:30 07/06/24 13:30 Temperature Pulse Rate 66 Respiratory Rate 16 Blood Pressure 110/67 109/64 Pulse Oximetry 97 Oxygen Delivery Method Room Air 07/06/24 13:58 07/06/24 13:58 07/06/24 14:00 Temperature Pulse Rate 59 L 56 L Respiratory Rate Blood Pressure 118/69 Pulse Oximetry 99 99 Oxygen Delivery Method 07/06/24 14:00 07/06/24 14:30 07/06/24 14:30 Temperature Pulse Rate 71 Respiratory Rate Blood Pressure 111/61 112/63 Pulse Oximetry 99 Oxygen Delivery Method Oxygen Delivery Method Room Air Narrative Exam Narrative: Gen: NAD, sitting comfortably in bed, appears well HEENT: Sclera are anicteric, head is normocephalic and atraumatic, trachea is midline. CV: RRR, no JVD Resp: clear to auscultation bilaterally, equal chest wall movement bilaterally Abd: soft, mildly tender in the right lower quadrant without rebound or guarding,, normoactive bowel sounds Ext: no edema, full range of motion Neuro: Cranial nerves II-XII grossly intact, no focal deficits Skin: No erythema or ecchymosis Objective Labs 07/06/24 09:56 07/06/24 09:56 Labs: Laboratory Results - last 24 hr 07/06/24 07/06/24 09:56 10:02 WBC 11.0 RBC 4.91 Hgb 13.7 Hct 41.0 MCV 83.4 MCH 27.9 MCHC 33.4 RDW 13.9 Plt Count 247 Neut % (Auto) 73.6 Lymph % (Auto) 15.5 L [place] % (Auto) 6.9 Eos % (Auto) 3.4 Baso % (Auto) 0.6 Neut # (Auto) 8100 H Lymph # (Auto) 1700 [place] # (Auto) 800 Eos # (Auto) 400 Baso # (Auto) 100 Sodium 139 Potassium 4.1 Chloride 104 Carbon Dioxide 23 BUN 13 Creatinine 0.81 Estimated GFR > 60 BUN/Creatinine Ratio 16.0 Glucose 108 H Calcium 10.2 Total Bilirubin 1.1 AST 23 ALT 17 Alkaline Phosphatase 60 Ammonia 10 Total Protein 8.6 H Albumin 5.1 H Globulin 3.5 Albumin/Globulin Ratio 1.5 Lipase 161 Assessment & Plan Assessment and plan (1) Acute appendicitis without mention of peritonitis: Status: Acute Assessment & Plan narrative: Patient has normal labs, no tachycardia, no peritonitis on exam. CT scan independently reviewed by me does not show fecalith or abscess or any other secondary signs to indicate that he would fail medical management. Discussed with the patient that he has an 80% chance of improving with antibiotics alone, but if he develops fevers chills worsening pain that does not resolve with antibiotics that he should represent for laparoscopic appendectomy. Time-Based Coding :: [TOTAL MINUTES] spent with patient and on the chart (including review of chart, obtaining history, exam, reviewing outside data, placing orders, documenting exam and treatment plan, and counseling patient) on [DATE]. PROFEE Community Service Coordinator Document charge(s): Yes Charge Codes Initial inpatient/observation care: 32897
[2024-07-06] MEDS: PIPERACILLIN/TAZO 4.5 GM in SODIUM CHLORIDE 0.9% 100 ML IV (14:39)
== END 2024-07-06 15:17 | disposition home or self-care (01) ==
PROVIDERS: Emergency Provider Family Medicine; PCP Family Medicine
DX: K35.80 Unspecified acute appendicitis (principal)
CPT/HCPCS: 36415; 74177; 80053; 81003; 82140; 83690; 85025; 96361; 96365; 99284; J2543; Q9967

== ENCOUNTER → 2024-11-06 16:24 | Outpatient (CLI) | payer OTHER, SELFPAY ==
[2024-11-06 20:33] LABS: Ur Creatinine Normal (Normal); Ur Specific Gravity Normal (Normal); Urine MDMA Negative (Negative); Urine Methamphetamines Negative (Negative); Urine THC Negative (Negative); Urine Tricyclic Antidepressant Negative (Negative); Urine pH Normal (Normal)
== END ==
PROVIDERS: PCP Family Medicine; Referring Provider Family Medicine; Visit Provider Family Medicine
DX: Z00.00 Encounter for general adult medical examination without abnormal findings (principal); F31.10 Bipolar disorder, current episode manic without psychotic features, unspecified
CPT/HCPCS: 80305

== ENCOUNTER → 2025-02-25 09:43 | Outpatient (CLI) | payer OTHER, SELFPAY ==
[2025-02-25 10:56] LABS: Hemoglobin A1C% w Est Avg Glu 5.0 % (4.0-6.0)
[2025-02-25 11:02] LABS: Blood Urea Nitrogen 11 mg/dL (9-20); Calcium 9.8 mg/dL (8.4-10.2); Carbon Dioxide 24 mmol/L (22-32); Chloride 105 mmol/L (98-107); Cholesterol 220 mg/dL (140-199); Estimated Glomerular Filt Rate > 60 mL/min (>60); Glucose 100 mg/dL (70-99); HDL Cholesterol 40 mg/dL (40-60); HEMOLYSIS < 15 (0-50); Potassium 4.2 mmol/L (3.4-5.1); Sodium 140 mmol/L (137-145); Triglycerides 216 mg/dL (35-150)
[2025-02-25 11:03] LABS: Lithium 0.7 mmol/L (0.6-1.2)
[2025-02-25 11:40] LABS: TSH w/ Reflex to FT4 1.19 uIU/mL (0.47-4.68)
== END ==
PROVIDERS: PCP Family Medicine; Referring Provider Family Medicine; Visit Provider Student in an Organized Health Care Education/Training Program
DX: Z79.899 Other long term (current) drug therapy (principal)
CPT/HCPCS: 36415; 80048; 80061; 80178; 83036; 84443